=== PATIENT | male | born 1950 | race Caucasian/White ===

== ENCOUNTER → 2018-06-27 11:08 | Outpatient (CLI) | payer MEDICARE, SELFPAY ==
[2018-06-27 12:12] LABS: Add Manual Diff / Slide Review NO; Basophils Percent Auto 0.9 % (0-2); Eosinophils Percent Auto 1.5 % (2-4); Hematocrit 53.5 % (41-53); Hemoglobin 18.4 g/dL (13.5-17.5); Lymphocytes Percent Auto 20.1 % (25-40); Mean Corpuscular HGB Conc 34.3 % (30-36); Mean Corpuscular Hemoglobin 29.7 PG (26-34); Mean Corpuscular Volume 86.5 fL (80-100); Monocytes Percent Auto 8.3 % (3-14); Neutrophils Absolute Auto 5800 /uL (1500-7000); Neutrophils Percent Auto 69.2 % (50-75); Platelet Count 298 X10^3/uL (150-400); Red Blood Cell Count 6.19 X10^6/uL (4.5-5.9); Red Cell Distribution Width 14.5 % (11.6-14.8); White Blood Cell Count 8.4 X10^3/uL (4.5-11.0)
[2018-06-27 12:49] LABS: HEMOLYSIS < 15 (0-50); Iron 130 ug/dL (49-181)
[2018-06-27 13:00] LABS: Percent Iron Saturation 38 % (20-50); Total Iron Binding Capacity 338 ug/dL (261-462); Transferrin 273 mg/dL (206-381)
== END ==
PROVIDERS: Family Provider Internal Medicine Cardiovascular Disease; PCP Nurse Practitioner Family; Visit Provider Internal Medicine
DX: D50.0 Iron deficiency anemia secondary to blood loss (chronic) (principal)
CPT/HCPCS: 36415; 83540; 83550; 85025

== ENCOUNTER → 2018-09-26 10:59 | Outpatient (CLI) | payer MEDICARE, SELFPAY ==
[2018-09-26 11:54] LABS: Add Manual Diff / Slide Review NO; Basophils Absolute Auto 100 /uL (0-100); Eosinophils Absolute Auto 300 /uL (0-450); Eosinophils Percent Auto 3.2 % (2-4); Hematocrit 55.1 % (41-53); Hemoglobin 18.4 g/dL (13.5-17.5); Lymphocytes Absolute Auto 1500 /uL (1100-4500); Lymphocytes Percent Auto 18.3 % (25-40); Mean Corpuscular HGB Conc 33.4 % (30-36); Mean Corpuscular Hemoglobin 30.3 PG (26-34); Mean Corpuscular Volume 90.9 fL (80-100); Monocytes Absolute Auto 600 /uL (0-900); Monocytes Percent Auto 7.3 % (3-14); Neutrophils Absolute Auto 5900 /uL (1500-7000); Neutrophils Percent Auto 70.2 % (50-75); Platelet Count 259 X10^3/uL (150-400); Red Blood Cell Count 6.06 X10^6/uL (4.5-5.9); Red Cell Distribution Width 14.4 % (11.6-14.8); White Blood Cell Count 8.4 X10^3/uL (4.5-11.0)
[2018-09-26 12:03] LABS: Hemoglobin A1C% w Est Avg Glu 5.4 % (4.0-6.0)
[2018-09-26 12:17] LABS: Blood Urea Nitrogen 18 mg/dL (9-20); Calcium 9.6 mg/dL (8.4-10.2); Carbon Dioxide 31 mmol/L (22-32); Chloride 99 mmol/L (98-107); Cholesterol 161 mg/dL (140-199); Estimated Glomerular Filt Rate > 60.0 mL/min (>60); Glucose 102 mg/dL (80-110); HDL Cholesterol 43 mg/dL (40-60); HEMOLYSIS < 15 (0-50); Iron 148 ug/dL (49-181); LDL Cholesterol Calculated 72 mg/dL (<100); Potassium 4.7 mmol/L (3.4-5.1); Sodium 140 mmol/L (137-145); Triglycerides 232 mg/dL (35-150)
[2018-09-26 12:27] LABS: Percent Iron Saturation 43 % (20-50); Total Iron Binding Capacity 345 ug/dL (261-462); Transferrin 278 mg/dL (206-381)
[2018-09-26 12:52] LABS: Ferritin 40.9 ng/mL (17.9-464)
== END ==
PROVIDERS: PCP Internal Medicine; Visit Provider Internal Medicine
DX: E11.9 Type 2 diabetes mellitus without complications (principal); D64.9 Anemia, unspecified; I10 Essential (primary) hypertension
CPT/HCPCS: 36415; 80048; 80061; 82728; 83036; 83540; 83550; 85025

== ENCOUNTER → 2018-11-04 08:11 | Outpatient (CLI) | payer MEDICARE, SELFPAY ==
--- NOTE | 2018-11-04 | DI.US.S_ITS ---
PROCEDURE: US SCROTUM INDICATIONS: LEFT TESTICULAR MASS TECHNIQUE: Real-time scanning was performed of the scrotum and testicles, with image documentation. Color and pulse Doppler interrogation was performed of both testicles. COMPARISON: None. FINDINGS: Right: Testicle is normal in size at 4.0 x 3.4 x 3.6 cm, and homogenous in echotexture. Epididymis is normal in overall size and morphology. Moderate hydrocele, no rectocele. Overlying scrotal skin is normal in thickness. Left: Testicle is normal in size at 4.2 x 3.0 x 2.3 cm, and homogeneous in echotexture. Epididymis is normal in overall size and morphology. Small hydrocele. No varicoceles. Overlying scrotal skin is normal in thickness. There is a large partially reducible hernia containing fat and bowel measuring 10.2 x 3.7 x 3.8 cm. This corresponds to the palpable lump. Doppler: Color and pulse Doppler demonstrate normal and symmetric arterial flow in both testicles. IMPRESSION: Large left inguinal hernia containing fat and bowel, partially reducible. No testicular mass. Dictated by: Washington Carrillo M.D. on 11/04/2018 at 9:40 Approved by: Washington Carrillo M.D. on 11/04/2018 at 9:46
== END ==
PROVIDERS: PCP Internal Medicine; Visit Provider Internal Medicine
DX: N50.9 Disorder of male genital organs, unspecified (principal); K40.90 Unilateral inguinal hernia, without obstruction or gangrene, not specified as recurrent
CPT/HCPCS: 76870

== ENCOUNTER → 2018-12-31 16:04 | Outpatient (CLI) | payer MEDICARE, SELFPAY ==
--- NOTE | 2018-12-31 | DI.US.S_ITS ---
PROCEDURE: US PERIPH VENOUS LOW EXTREM LT INDICATIONS: EDEMA TECHNIQUE: Real-time imaging, as well as color and pulse Doppler interrogation, were performed of the lower extremity deep veins from the inguinal ligament to the popliteal fossa. COMPARISON: None. FINDINGS: The common femoral, femoral and popliteal veins are normally compressible, and free of intraluminal thrombus. Color and pulse Doppler demonstrate normal phasic intraluminal flow. There is normal augmentation response to distal compression maneuver. Incidental note is made of a moderate-sized left-sided Quiroz's cyst. IMPRESSION: No evidence of left lower extremity deep vein thrombosis. Dictated by: Aureliano Shannon M.D. on 12/31/2018 at 17:19 Approved by: Aureliano Shannon M.D. on 12/31/2018 at 17:20
== END ==
PROVIDERS: PCP Internal Medicine; Visit Provider Internal Medicine
DX: R60.9 Edema, unspecified (principal)
CPT/HCPCS: 93971

== ENCOUNTER → 2019-03-06 10:54 | Outpatient (CLI) | payer MEDICARE, SELFPAY ==
[2019-03-06 13:07] LABS: Add Manual Diff / Slide Review NO; Basophils Absolute Auto 100 /uL (0-100); Basophils Percent Auto 0.9 % (0-2); Eosinophils Absolute Auto 300 /uL (0-450); Hematocrit 53.6 % (41-53); Hemoglobin 17.7 g/dL (13.5-17.5); Lymphocytes Absolute Auto 2200 /uL (1100-4500); Lymphocytes Percent Auto 23.7 % (25-40); Mean Corpuscular Volume 87.9 fL (80-100); Monocytes Absolute Auto 700 /uL (0-900); Monocytes Percent Auto 7.2 % (3-14); Neutrophils Absolute Auto 6100 /uL (1500-7000); Neutrophils Percent Auto 65.2 % (50-75); Platelet Count 227 X10^3/uL (150-400); Red Blood Cell Count 6.09 X10^6/uL (4.5-5.9); Red Cell Distribution Width 15.1 % (11.6-14.8); White Blood Cell Count 9.4 X10^3/uL (4.5-11.0)
[2019-03-06 13:17] LABS: HEMOLYSIS < 15 (0-50); Iron 136 ug/dL (49-181)
[2019-03-06 13:29] LABS: Percent Iron Saturation 50 % (20-50); Total Iron Binding Capacity 271 ug/dL (261-462); Transferrin 220 mg/dL (206-381)
== END ==
PROVIDERS: PCP Internal Medicine; Visit Provider Internal Medicine
DX: D75.1 Secondary polycythemia (principal); D50.0 Iron deficiency anemia secondary to blood loss (chronic)
CPT/HCPCS: 36415; 82728; 83540; 83550; 85025

== ENCOUNTER → 2019-03-11 09:23 | Outpatient (CLI) | payer MEDICARE, SELFPAY ==
--- NOTE | 2019-03-11 | DI.RAD.S_ITS ---
PROCEDURE: XR WRIST LT 2V INDICATIONS: WRIST PAIN TECHNIQUE: 2 views of the wrist were acquired. COMPARISON: None. FINDINGS: Bones: No fractures or dislocations. There is marked narrowing of the radiocarpal and first CMC joints. No suspicious bony lesions. Soft tissues: No suspicious soft tissue calcifications. 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 Dictated by: Thomas Suarez M.D. on 03/11/2019 at 11:16 Approved by: Thomas Suarez M.D. on 03/11/2019 at 11:18
[2019-03-11 10:50] LABS: Uric Acid 9.2 mg/dL (3.5-8.5)
== END ==
PROVIDERS: PCP Internal Medicine; Visit Provider Internal Medicine
DX: M10.00 Idiopathic gout, unspecified site (principal); M25.539 Pain in unspecified wrist
CPT/HCPCS: 36415; 73100; 84550

== ENCOUNTER → 2019-06-05 10:09 | Outpatient (CLI) | payer MEDICARE, SELFPAY ==
[2019-06-05 11:09] LABS: Add Manual Diff / Slide Review NO; Basophils Absolute Auto 100 /uL (0-100); Eosinophils Absolute Auto 200 /uL (0-450); Eosinophils Percent Auto 1.7 % (2-4); Hematocrit 55.8 % (41-53); Hemoglobin 18.7 g/dL (13.5-17.5); Lymphocytes Absolute Auto 1700 /uL (1100-4500); Lymphocytes Percent Auto 18.9 % (25-40); Mean Corpuscular HGB Conc 33.5 % (30-36); Mean Corpuscular Hemoglobin 30.3 PG (26-34); Mean Corpuscular Volume 90.5 fL (80-100); Monocytes Absolute Auto 700 /uL (0-900); Monocytes Percent Auto 7.5 % (3-14); Neutrophils Absolute Auto 6600 /uL (1500-7000); Neutrophils Percent Auto 70.9 % (50-75); Platelet Count 239 X10^3/uL (150-400); Red Blood Cell Count 6.16 X10^6/uL (4.5-5.9); Red Cell Distribution Width 13.8 % (11.6-14.8); White Blood Cell Count 9.2 X10^3/uL (4.5-11.0)
[2019-06-05 11:20] LABS: Hemoglobin A1C% w Est Avg Glu 5.1 % (4.0-6.0)
[2019-06-05 11:24] LABS: Alanine Aminotransferase 15 IU/L (<50); Albumin 4.4 g/dL (3.5-5.0); Albumin Globulin Ratio 1.2 (1.0-2.8); Alkaline Phosphatase 88 U/L (38-126); Aspartate Aminotransferase 36 IU/L (17-59); BUN Creatinine Ratio 32.5 (6-22); Bilirubin Total 1.5 mg/dL (0.2-1.3); Blood Urea Nitrogen 26 mg/dL (9-20); Calcium 9.4 mg/dL (8.4-10.2); Carbon Dioxide 31 mmol/L (22-32); Chloride 100 mmol/L (98-107); Cholesterol 137 mg/dL (140-199); Estimated Glomerular Filt Rate > 60.0 mL/min (>60); Globulin 3.7 g/dL (1.7-4.1); Glucose 106 mg/dL (80-110); HDL Cholesterol 33 mg/dL (40-60); HEMOLYSIS 42 (0-50); LDL Cholesterol Calculated 63 mg/dL (<100); Potassium 4.7 mmol/L (3.4-5.1); Sodium 139 mmol/L (137-145); Total Protein 8.1 g/dL (6.3-8.2); Triglycerides 205 mg/dL (35-150)
--- NOTE | 2019-06-22 14:52 | ONC.SCHED ---
Attempted contact to schedule patient - left voicemail
== END ==
PROVIDERS: PCP Internal Medicine; Visit Provider Internal Medicine
DX: E11.9 Type 2 diabetes mellitus without complications (principal); D50.0 Iron deficiency anemia secondary to blood loss (chronic)
CPT/HCPCS: 36415; 80053; 80061; 83036; 85025

== ENCOUNTER → 2020-02-12 11:20 | Outpatient (CLI) | payer MEDICARE, SELFPAY ==
[2020-02-12 11:57] LABS: Alanine Aminotransferase 23 IU/L (<50); Albumin 4.6 g/dL (3.5-5.0); Albumin Globulin Ratio 1.2 (1.0-2.8); Alkaline Phosphatase 94 U/L (38-126); Aspartate Aminotransferase 31 IU/L (17-59); BUN Creatinine Ratio 36.5 (6-22); Bilirubin Total 1.2 mg/dL (0.2-1.3); Blood Urea Nitrogen 35 mg/dL (9-20); Calcium 10.1 mg/dL (8.4-10.2); Carbon Dioxide 32 mmol/L (22-32); Chloride 99 mmol/L (98-107); Estimated Glomerular Filt Rate > 60.0 mL/min (>60); Globulin 3.9 g/dL (1.7-4.1); Glucose 130 mg/dL (80-110); HEMOLYSIS < 15 (0-50); Potassium 3.8 mmol/L (3.4-5.1); Sodium 139 mmol/L (137-145); Total Protein 8.5 g/dL (6.3-8.2)
[2020-02-12 12:00] LABS: Add Manual Diff / Slide Review NO; Basophils Absolute Auto 100 /uL (0-100); Basophils Percent Auto 1.4 % (0-2); Eosinophils Absolute Auto 100 /uL (0-450); Eosinophils Percent Auto 1.1 % (2-4); Hematocrit 52.9 % (41-53); Hemoglobin 17.8 g/dL (13.5-17.5); Lymphocytes Absolute Auto 1700 /uL (1100-4500); Lymphocytes Percent Auto 19.4 % (25-40); Mean Corpuscular HGB Conc 33.5 % (30-36); Mean Corpuscular Hemoglobin 30.2 PG (26-34); Monocytes Absolute Auto 600 /uL (0-900); Monocytes Percent Auto 7.3 % (3-14); Neutrophils Absolute Auto 6200 /uL (1500-7000); Neutrophils Percent Auto 70.8 % (50-75); Platelet Count 243 X10^3/uL (150-400); Red Blood Cell Count 5.88 X10^6/uL (4.5-5.9); Red Cell Distribution Width 14.8 % (11.6-14.8); White Blood Cell Count 8.7 X10^3/uL (4.5-11.0)
== END ==
PROVIDERS: PCP Internal Medicine; Referring Provider Internal Medicine Hematology & Oncology; Visit Provider Internal Medicine Hematology & Oncology
DX: D75.1 Secondary polycythemia (principal)
CPT/HCPCS: 36415; 80053; 85025

== ENCOUNTER → 2020-09-09 12:31 | Outpatient (CLI) | payer MEDICARE, SELFPAY ==
[2020-09-09 13:03] LABS: Alanine Aminotransferase 16 IU/L (<50); Albumin 4.5 g/dL (3.5-5.0); Albumin Globulin Ratio 1.1 (1.0-2.8); Alkaline Phosphatase 122 U/L (38-126); Aspartate Aminotransferase 24 IU/L (17-59); BUN Creatinine Ratio 28.6 (6-22); Bilirubin Total 1.2 mg/dL (0.2-1.3); Blood Urea Nitrogen 24 mg/dL (9-20); Calcium 9.8 mg/dL (8.4-10.2); Carbon Dioxide 33 mmol/L (22-32); Chloride 97 mmol/L (98-107); Estimated Glomerular Filt Rate > 60.0 mL/min (>60); Glucose 121 mg/dL (80-110); HEMOLYSIS < 15 (0-50); Potassium 4.6 mmol/L (3.4-5.1); Sodium 137 mmol/L (137-145); Total Protein 8.5 g/dL (6.3-8.2)
[2020-09-09 13:33] LABS: HEMOLYSIS < 15 (0-50); Iron 76 ug/dL (49-181)
[2020-09-09 13:38] LABS: Ferritin 109 ng/mL (18-464)
[2020-09-09 13:44] LABS: Percent Iron Saturation 22 % (20-50); Total Iron Binding Capacity 353 ug/dL (261-462); Transferrin 248 mg/dL (206-381)
[2020-09-09 14:02] LABS: Add Manual Diff / Slide Review NO; Basophils Absolute Auto 100 /uL (0-100); Basophils Percent Auto 1.1 % (0-2); Eosinophils Absolute Auto 100 /uL (0-450); Eosinophils Percent Auto 1.1 % (2-4); Hematocrit 55.3 % (41-53); Hemoglobin 18.4 g/dL (13.5-17.5); Lymphocytes Absolute Auto 2000 /uL (1100-4500); Lymphocytes Percent Auto 22.9 % (25-40); Mean Corpuscular HGB Conc 33.2 % (30-36); Mean Corpuscular Hemoglobin 29.9 PG (26-34); Monocytes Absolute Auto 800 /uL (0-900); Neutrophils Absolute Auto 5900 /uL (1500-7000); Neutrophils Percent Auto 65.9 % (50-75); Platelet Count 277 X10^3/uL (150-400); Red Blood Cell Count 6.15 X10^6/uL (4.5-5.9); Red Cell Distribution Width 14.3 % (11.6-14.8); White Blood Cell Count 8.9 X10^3/uL (4.5-11.0)
== END ==
PROVIDERS: Referring Provider Internal Medicine Hematology & Oncology; Visit Provider Internal Medicine Hematology & Oncology
DX: D75.1 Secondary polycythemia (principal); I48.91 Unspecified atrial fibrillation; I10 Essential (primary) hypertension
CPT/HCPCS: 36415; 80053; 82728; 83540; 83550; 85025